=== PATIENT | female | born 1970 | race Caucasian/White ===

== ENCOUNTER 2023-10-14 10:11 | Outpatient (CLI) | payer OTHER, SELFPAY ==
--- NOTE | ~2023-10-14 | XR_ITS ---
XR cervical spine 4-5V Ordering provider: Farhat Espana MD History: . MILKA NECK PAIN RADIATES INTO SHOULDERS . Comparison: None. FINDINGS: VERTEBRAL BODIES: Normal height and alignment. No visible fracture or subluxation. The dens is intact . DISK SPACES: Well maintained. PARASPINOUS SOFT TISSUES: No prevertebral soft tissue swelling. IMPRESSION: No acute osseous abnormality cervical spine. Reviewed, dictated and finalized at location A.
--- NOTE | ~2023-10-14 | XR_ITS ---
3 VIEWS THORACIC SPINE Ordering provider: Farhat Espana MD History: . MILKA NECK PAIN, RADIATES INTO SHOULDERS. NKI . Comparison: None. FINDINGS: VERTEBRAL BODIES: Normal height and alignment. No visible fracture or subluxation. DISK SPACES: Normal. SOFT TISSUES: Normal. IMPRESSION: No acute osseous abnormality of the thoracic spine. Reviewed, dictated and finalized at location A.
== END 2023-10-14 10:12 | disposition home or self-care (01) ==
LOC: ANHIMG 10:14
PROVIDERS: PCP Internal Medicine; Visit Provider Internal Medicine
DX: M25.511 Pain in right shoulder (principal); M25.512 Pain in left shoulder; M54.2 Cervicalgia
CPT/HCPCS: 72050; 72072

== ENCOUNTER 2024-09-07 03:35 | Day surgery (SDC) | payer OTHER, SELFPAY ==
[2024-08-29 10:22] VITALS: BMI 23.4
--- OUTSIDE RECORDS SUMMARY | 2024-09-07 03:38 | XMS_ITS | Clinical Summary ---
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 Patient failed NSAIDs and physical therapy. Patient is reporting that the pain is worsening and affecting her ADLs. MRI completed. See report in chart. Refer to pain management for further evaluation and treatment options. 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 Patient has failed Kenalog. Rashes reoccurring. Was switched to Diprosone. Patient will try and eczema lotion in the morning and the steroid cream at night. Recommend patient switch to cotton underwear. Patient is also using a hypoallergenic soap/laundry detergent. If no improvement will consider a punch biopsy Migraine without aura and wi thout status migrainosus, not intractable 04/17/2020 Assessment & Plan (01/11/2023 11:55 AM CDT): Stable, titc-yhz-xemtkqk meds if needed Assessment & Plan (06/17/2020 3:28 PM CDT): Discussed tx options for migraines (inderal, elavil, topamax, bcp's increase estrogen to help with break thru bleeding, just tx the headaches monthly. ) Pt wants to stop he bcp's and using the imitrex as needed for migraines. Counseled pt on the correct way to take imitrex. Recommend giving it 1-2 months to see how patient does. If migraines become more intense and the Imitrex is not helping as much or she is getting more than 1 a month we will restart control. I would probably move her up to the Loestrin 1.08/25. Assessment & Plan (04/17/2020 2:13 PM GAS SPECIALIST): New diagnosis. Unsure of trigger at this time. Patient will start taking her control pills continuously for the next 1-2 months. Patient was given Imitrex to take with her next migraine. Patient will keep a migraine log. Patient will update us through my chart. Patient did not describe any red flag symptoms so we will hold on imaging at this time. If migraines or continuing will consider CT scan or MRI. Patient/parent was counseled on medication risk, side effects, and possible complications. Patient/parent was counseled on how to properly take the medication and to call with any adverse reactions. Patient/parent stated understanding. Health maintenance examination 11/22/2019 Overview (07/05/2024): PMH: 01/11/23 Last pap 01/11/23 Last mammogram:07/04/24 Last dexa: Last colonoscopy/cologuard: 05/3022 Last tdap:10/10/2009, 01/26/2020 Last Prevnar/pneumovax: Last Shingrix: info given Last eye exam: 2019 Assessment & Plan (01/11/2023 10:49 AM CDT): PMH: 01/11/23 Last pap:12/25/2016, 01/26/2020, 01/11/23 Last mammogram:10/28/2021 Last dexa: Last colonoscopy/cologuard: 05/3022 Last tdap:10/10/2009, 01/26/2020 Last Prevnar/pneumovax: Last Shingrix: info given Last eye exam: 2019 Assessment & Plan (01/26/2020 10:11 AM CDT): PMH: 01/26/2020 Last pap:12/25/2016, 01/26/2020 Last mammogram: Last dexa: Last colonoscopy/cologuard: info given Last tdap:10/10/2009, 01/26/2020 Last Prevnar/pneumovax: Last Shingrix: Last eye exam: 2019 BMI 23.0-23.9, adult 11/22/2019 Assessment & Plan (01/11/2023 11:55 AM CDT): BMI is okay. Normal range is 18-25 and overweight is 25-30. Continue to work on eating healthy and exercising at least 150 minutes per week. Assessment & Plan (01/26/2020 11:52 AM CDT): BMI is okay. Normal range is 18-25 and overweight is 25-30. Continue to work on eating healthy and exercising at least 150 minutes per week. Assessment & Plan (11/22/2019 12:03 PM CDT): BMI is okay. Normal range is 18-25 and overweight is 25-30. Continue to work on eating healthy and exercising at least 150 minutes per week. Nontoxic (diffuse) goiter 02/14/2019 Assessment & Plan (01/11/2023 11:55 AM CDT): Stable, followed by specialist. Due for labs. 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 Possible deep cyst, possible intense muscle spasm, possible unknown mass. Order ultrasound. Will cover for possible infection and give Keflex. May consider steroids and muscle relaxer pending ultrasound. May need refer to general surgeon Surveillance for contr ol, oral contraceptives 01/26/2020 01/11/2023 Assessment & Plan (01/26/2020 11:54 AM CDT): Stable on pill Encounters Date Type Department Care Team Description 07/05/2024 Results Follow-Up [facility] [address] [id number] Wanda Mishra PA Screening Mammogram Bilateral W Bryan 07/04/2024 1:27 PM CDT - 07/04/2024 11:59 PM CDT Hospital Encounter [facility] [address] [place] [address] Screening mammogram for breast cancer Discharge Disposition: Discharge to home or self care from Last 3 Months Immunizations Immunization Administration Dates Next Due Influenza, Quadrivalent, Spl it, Preservative Free, Intramuscular 01/11/2023,01/09/2021,01/26/2020 Influenza, Unspecified 12/28/2023(Deferr ed: Patient decision),12/30/2021(Deferred: Patient Refused),12/27/2021,12/27/2021(Deferre d: Patient Refused) ozuke (J&J) SARS-CoV-2 Vaccination 06/14/2020 Tdap 01/26/2020,10/10/2009 ZOSTER Recombinant 02/18/2024 Surgical History Surgery Date Site/Laterality Comments LAPAROSCOPY endometriosis noted and resected SECTION x2 Medical History Medical History Date Comments Hypothyroidism Nontoxic diffuse goiter Thyroiditis, autoimmune PONV (postoperative nausea and vomiting) Headache migraine Neck pain Family History Medical History Relation Name Comments No Known Problems Brother 1 No Known Problems Brother 2 Prostate cancer Father Prostate can cer - (Added by TW Conv) Thyroid disease Father's Sister Hyperlipidemia Maternal Grandfather No Known Problems Maternal Grandmother No Known Problems Mother Thyroid disease Other 1 Paternal Aunt Thyroid disease Other 2 Paternal Aunt Heart attack Paternal Grandfather No Known Problems Sister No Known Problems Son 1 No Known Problems Son 2 Relation Name Status Comments Brother 1 Alive Brother 2 Alive Father Alive Father's Sister Maternal Grandfather Maternal Grandmother Mother Alive Other 1 Paternal Aunt Other 2 Paternal Aunt Alive Paternal Grandfather Sister Alive Son 1 Son 2 Social History Tobacco Use Types Packs/Day Years Used Date Smoking Tobacco: Never Passive Smoke Exposure: Never Smokeless Tobacco: Never Tobacco Cessation:Counseling Given: Not Answered Alcohol Use Standard Drinks/Week Comments Yes 0 (1 standard drink = 0.6 oz pur e alcohol) 3-4 weekly AUDIT-C Answer Date Recorded Q1: How often do you have a drink containing alc ohol? 2-4 times a month 04/17/2024 Q2: How many drinks containi ng alcohol do you have on a typical day when you are drinking? 1 or 2 04/17/2024 Q3: How often do you have si x or more drinks on one occasion? Never 04/17/2024 PHQ-2 Answer Date Recorded PHQ-2 Total Score (If total score is 3 or more points, staff should administer the PHQ-9) 0 02/18/2024 Personal Safety Answer Date Recorded Have you ever been in or are you currently in a harmful physical or emotional relationship or is someone making you feel afraid or unsafe? Denies 04/15/2023 Comments No Sex and Gender Information Value Date Recorded Sex Assigned at Not on file Legal Sex Female 12:38 AM GAS SPECIALIST Gender Identity Female 03/03/2023 9:59 AM GAS SPECIALIST Sexual Orientation Not on file 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 file Not on file Not on file Obstetrics History Para Term AB IAB SAB Ectopic Multiple Livin g Live Births 4 4 2 2 2 2 Date Outcome GA Total Labor Labor/2nd/3rd Weight Sex Type Anes PTL Karlene A1 A5 Name Clin Term Term 2002 32w 0d M Living 2004 36w 0d M Living Last Filed Vital Signs Vital Sign Reading Time Taken Comments Blood Pressure 129/75 04/17/2024 9:01 AM GAS SPECIALIST Pulse 77 04/17/2024 9:01 AM GAS SPECIALIST Temperature 36.2 C (97.2 F) 04/17/2024 9:01 AM GAS SPECIALIST Respiratory Rate 16 04/17/2024 9:01 AM GAS SPECIALIST Oxygen Saturation 98% 04/17/2024 9:01 AM GAS SPECIALIST Inhaled Oxygen Concentration - - Weight 68.5 kg (151 lb) 04/17/2024 9:01 AM GAS SPECIALIST Height 170.2 cm (5' 7) 04/17/2024 9:01 AM GAS SPECIALIST Body Mass Index 23.65 04/17/2024 9:01 AM GAS SPECIALIST Plan of Treatment Health Maintenance Due Date Last Done Comments Hepatitis C Screening 1970 Hepatitis B Screening 1990 Covid-19 Vaccine ( season) 2023 02/04/2021, 06/14/2020 Regular Well Visit/Exam 18-64 01/12/2024 01/11/2023, 01/26/2020 Zoster Vaccine (2 of 2) 04/14/2024 02/18/2024 Influenza Vaccine (Season Ended) 2024 01/11/2023, 12/27/2021, 01/09/2021, Additional history exists Depression Screening 02/17/2025 02/18/2024, 02/05/2023, 01/25/2023, Additional history exists Colon Cancer Screening-DNA Stool 06/26/2025 06/26/2022 Breast Cancer Screening-Mammogram 07/04/2025 07/04/2024, 03/16/2023, 10/28/2021, Additional history exists Cervical Cancer Screening 01/12/2028 01/11/2023, 08/2016 DTaP/Tdap/Td Vaccine (3 - Td or Tdap) 01/25/2030 01/26/2020, 10/10/2009 Pneumococcal vaccine <65 Aged Out No longer eligible based on patient's age to complete this topic Goals Goal Patient Goal Type Associated Problems Recent Progress Patient-Stated? Author CCM Chronic Pain Care Plan Chronic Care Management Patric Friend, RN Note: Problem: Chronic Pain Goals: 1. Minimize further functional decline 2. Maximize quality of life 3. Control pain Strategies: - Activity/exercise program recommendation - Conservative stepwise pain medicine strategy with multi-disciplinary approach - Recommend healthy lifestyle strategies and compensatory methods as needed Procedures Procedure Name Priority Date/Time Associated Diagnosis Comments SCREENING MAMMOGRAM BILATERAL W BRYAN Schedule Routine, Read Routine (OP Routine) 07/04/2024 1:46 PM CDT Screening mammogram for breast cancer PAP AND HPV, REFLEX TO HPV GENOTYPES Routine 01/11/2023 11:10 AM CDT Pap smear, as part of routine gynecological examination Special screening examination for human papillomavirus (HPV) STOOL DNA COLOGUARD Routine 06/26/2022 10:45 AM CDT Screening for malignant neoplasm of colon from Last 3 Months or Most Recently Relevant to Health Maintenance Results * Screening Mammogram Bilateral W Bryan (07/04/2024 1:46 PM CDT) Anatomical Region Laterality Modality Breast Bilateral Mammography Impressions 07/04/2024 1:57 PM CDT BI-RADS ATLAS category (overall): 1 - Negative There is no mammographic evidence of malignancy. A 1 year screening mammogram is recommended. The patient has been or will be contacted. We recommend annual screening mammography for women at average risk of breast cancer beginning at age 40, based on guidelines of the [place] [employer] [employer] (ACR Practice Parameter for the Performance of Screening and Diagnostic Mammography) and [place] [employer]. For women with and elevated risk of breast cancer, please refer to the ACR Practice Parameter for specific screening recommendations. The patient will be entered into a reminder system with a target due date of 1 year for her next screening exam. Narrative 07/04/2024 1:57 PM CDT Screening Mammogram Bilateral W Bryan: 07/04/24 The study was acquired using full field digital technology and interpreted from soft copy. 2D digital mammographic views, as well as 3D digital tomosynthesis were performed in the CC and MLO projections. CLINICAL: Screening mammogram for breast cancer. No relevant medical history has been documented for this patient. No known family history of breast cancer. COMPARISONS: 03/16/2023 Screening Mammogram Bilateral W Bryan 10/28/2021 SCREENING MAMMOGRAM BILATERAL W BRYAN 05/19/2013 US Breast Limited 05/08/2013 US Breast Limited 05/05/2013 Diagnostic Mammogram Bilateral W Bryan BREAST TISSUE: The breasts are extremely dense, which lowers the sensitivity of mammography. FINDINGS: No suspicious masses, suspicious calcifications, or other suspicious findings are seen within either breast. There has been no suspicious change. Wanda THAO IMG MAMMO PROCEDURES Final Res ult * Pap and HPV, reflex to HPV Genotypes (01/11/2023 11:10 AM CDT) CLINICAL INFORMATION: [facility] Comment:None given LMP [facility] Comment:[place] Previous Pap [facility] Comment:NONE GIVEN Prev. Bx [facility] Comment:NONE GIVEN SOURCE: [facility] Comment:Cervix, Endocervix Pap, specimen adequacy [facility] Comment: Satisfactory for evaluation. Endocervical/transformation zone component present. HPV interp [facility] Comment: Cytology Results: Negative for intraepithelial lesion or malignancy. [employer] [facility] Comment: MMD, CT(ASCP) CT Screening Location: [place] [address] [facility] Comment: EXPLANATORY NOTE: The Pap is a screening test for cervical cancer. It is not a diagnostic test and is subject to false negative and false positive results. It is most reliable when a satisfactory sample, regularly obtained, is submitted with relevant clinical findings and history, and when the Pap result is evaluated along with historic and current clinical information. EFFECTIVE FEBRUARY 22, 2023, the version of ThinPrep you ordered, commonly known as manual ThinPrep, will be DISCONTINUED. An alternative form of ThinPrep, called ThinPrep Imaging, will continue to be available. For a copy of the client communication (TIS Client Letter) showing TIS test codes, see www.[email or web address]/Resources, and navigate to [email or web address]>Physician Materials>TIS Client Letter. You can also call for test code assistance. Human papillomavirus DNA, High Risk E6/E7 Not Detected NOT DETECTED [facility] Comment: Not Detected High Risk HPV types (16,18,31,33,35,39,45,51,52, 56,58,59,66,68) were not detected. Other HPV types which cause anogenital lesions may be present. The significance of the other types of HPV in malignant processes has not been established. Methodology: Real Time PCR Thin prep 01/11/2023 11:1 0 AM CDT 01/12/2023 12:16 PM CDT Wanda THAO LAB CYTOLOGY ORDERABLES Final Result [facility] [address] [place] [address] [facility] [address] [place] [address] * Stool DNA - Cologuard (06/26/2022 10:45 AM CDT) Stool DNA - Cologuard Negative Negative [facility] (CLIA #:[id number]) Comment: NEGATIVE TEST RESULT. A negative Cologuard result indicates a low likelihood that a colorectal cancer (CRC) or advanced adenoma (adenomatous polyps with more advanced pre-malignant features) is present. The chance that a person with a negative Cologuard test has a colorectal cancer is less than 1 in 1500 (negative predictive value >99.9%) or has an advanced adenoma is less than 5.3% (negative predictive value 94.7%). These data are based on a prospective cross-sectional study of 10,000 individuals at average risk for colorectal cancer who were screened with both Cologuard and colonoscopy. (Katelin Lambert et al, N Engl J Med 2014;370(14):5676-4148) The normal value (reference range) for this assay is negative. COLOGUARD RE-SCREENING RECOMMENDATION: Periodic colorectal cancer screening is an important part of preventive healthcare for asymptomatic individuals at average risk for colorectal cancer. Following a negative Cologuard result, the [place] [employer] and U.S. Multi-Society Task Force screening guidelines recommend a Cologuard re-screening interval of 3 years. References: [place] [employer] Guideline for Colorectal Cancer Screening: https://www.cancer.org/cancer/ystch-xgghkt-yqfahm/yunhsgjpe-oslsmuwkg-qokokzg/ac s-rec ommendations.html.; Manuel BLACKWELL, Sarah BOLAÑOS, Scott CorneliusK, Colorectal Cancer Screening: Recommendations for Physicians and Patients from the U.S. Multi-Society Task Force on Colorectal Cancer Screening , Am J Gastroenterology 2017; 112:1512-3313. TEST DESCRIPTION: Composite algorithmic analysis of stool DNA-biomarkers with hemoglobin immunoassay. Quantitative values of individual biomarkers are not reportable and are not associated with individual biomarker result reference ranges. Cologuard is intended for colorectal cancer screening of adults of either sex, 45 years or older, who are at average-risk for colorectal cancer (CRC). Cologuard has been approved for use by the U.S. FDA. The performance of Cologuard was established in a cross sectional study of average-risk adults aged 50-84. Cologuard performance in patients ages 45 to 49 years was estimated by sub-group analysis of near-age groups. Colonoscopies performed for a positive result may find as the most clinically significant lesion: colorectal cancer [4.0%], advanced adenoma (including sessile serrated polyps greater than or equal to 1cm diameter) [20%] or non- advanced adenoma [31%]; or no colorectal neoplasia [45%]. These estimates are derived from a prospective cross-sectional screening study of 10,000 individuals at average risk for colorectal cancer who were screened with both Cologuard and colonoscopy. (Katelin Lambert et al, N Engl J Med 2014;370(14):4436-1202.) Cologuard may produce a false negative or false positive result (no colorectal cancer or precancerous polyp present at colonoscopy follow up). A negative Cologuard test result does not guarantee the absence of CRC or advanced adenoma (pre-cancer). The current Cologuard screening interval is every 3 years. ([place] [employer] and U.S. Multi-Society Task Force). Cologuard performance data in a 10,000 patient pivotal study using colonoscopy as the reference method can be accessed at the following location: www.[employer]/results. Additional description of the Cologuard test process, warnings and precautions can be found at www.cologuard.[employer]. Stool 06/26/2022 10:4 5 AM CDT 09/25/2022 7:51 PM CDT us Lidia Bradley MD LAB BODY FLUIDS AND STOOLS ORDERABLES Final Result [facility] (CLIA #:[id number]) [address] [place] [address] from Last 3 Months or Most Recently Relevant to Health Maintenance Insurance [employer] [facility] H[facility]PPO Address: [facility] [address] [place] [address] [facility]O Address: [address] [address] [place] [address] [employer] [facility] [employer]/PPO Address: [address] [address] [place] [address] Care Teams Bit Welder Relationship Specialty Start Date End Date Farhat Espana MD [address] [facility] [address] [place] [address] PCP - General Internal Medicine 04/07/24 Dhara Barton DO [address] [facility] [address] [place] [address] Consulting Physician Endocrinology Diabetes & Metabolism 01/03/19
--- OUTSIDE RECORDS SUMMARY | 2024-09-07 03:38 | XMS_ITS | Referral Summary ---
Author Organization [facility] Address [address] [place] [address] Care Team Providers Care Assembly Loader Name Role Phone OraliaDhara rodriguez Kathryn DO Unavailable [phone] Farhat Espana MD Primary Care Provider [phone] Encounters Date Type Department Care Team Description 07/05/2024 Results Follow-Up [facility] Family [facility] [address] [address] Wanda Mishra PA Screening Mammogram Bilateral W Bryan 07/04/2024 1:27 PM CDT - 07/04/2024 11:59 PM CDT Hospital Encounter [facility] [address] [facility] [address] [place] [address] [address] [place], [place] [id number] Screening mammogram for breast cancer Discharge Disposition: Discharge to home or self care from Last 3 Months Allergies No known active allergies Medications levothyroxine [...] 02/18/2024 Assessment & Plan (02/18/2024 9:42 AM PERSONNEL CLERK): New issue. Patient failed NSAIDs and physical therapy. Patient is reporting that the pain is worsening and affecting her ADLs. MRI completed. See report in chart. Refer to pain management for further evaluation and treatment options. 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 Patient has failed Kenalog. Rashes reoccurring. [...] & Plan (01/11/2023 11:55 AM CDT): Stable, umgl-hjy-ckwtnei meds if needed Assessment & Plan (06/17/2020 [...] probably move her up to the Loestrin .08/25. Assessment & Plan (04/17/2020 2:13 PM PERSONNEL CLERK): New diagnosis. Unsure of trigger at this [...] 024 Assessment & Plan (02/05/2023 8:51 AM PERSONNEL CLERK): New issue. Possible deep cyst, possible intense muscle spasm, possible unknown mass. Order ultrasound. Will cover for possible infection and give Keflex. May consider steroids and muscle relaxer pending ultrasound. May need refer to general surgeon Surveillance for contr ol, oral contraceptives 01/26/2020 01/11/2023 Assessment & Plan (01/26/2020 11:54 AM CDT): Stable on pill Immunizations Immunization Administration Dates Next Due Influenza, Quadrivalent, Spl it, Preservative Free, Intramuscular 01/11/2023,01/09/2021,01/26/2020 Influenza, Unspecified 12/28/2023(Deferr ed: Patient decision),12/30/2021(Deferred: Patient Refused),12/27/2021,12/27/2021(Deferre d: Patient Refused) [employer] SARS-CoV-2 Vaccination 06/14/2020 Tdap 01/26/2020,10/10/2009 ZOSTER Recombinant 02/18/2024 Social History Tobacco Use Types Packs/Day Years [...] on file Legal Sex Female 12:38 AM PERSONNEL CLERK Gender Identity Female 03/03/2023 9:59 AM PERSONNEL CLERK Sexual Orientation Not on file 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 file Not on file Not on file Last Filed Vital Signs Vital Sign Reading Time Taken Comments Blood Pressure 129/75 04/17/2024 9:01 AM PERSONNEL CLERK Pulse 77 04/17/2024 9:01 AM PERSONNEL CLERK Temperature 36.2 C (97.2 F) 04/17/2024 9:01 AM PERSONNEL CLERK Respiratory Rate 16 04/17/2024 9:01 AM PERSONNEL CLERK Oxygen Saturation 98% 04/17/2024 9:01 AM PERSONNEL CLERK Inhaled Oxygen Concentration - - Weight 68.5 kg (151 lb) 04/17/2024 9:01 AM PERSONNEL CLERK Height 170.2 cm (5' 7) 04/17/2024 9:01 AM PERSONNEL CLERK Body Mass Index 23.65 04/17/2024 9:01 AM PERSONNEL CLERK Plan of Treatment Not on file Goals Goal Patient Goal Type Associated Problems Recent Progress Patient-Stated? Author CCM Chronic Pain Care Plan Chronic Care Management No Patric Amin RN Note: Problem: Chronic Pain Goals: 1. [...] age 42, based on guidelines of the [place] [employer] (ACR Practice Parameter for the Performance of Screening and Diagnostic Mammography) and [place] [employer]. For women [...] Genotypes (01/11/2023 11:10 AM CDT) CLINICAL INFORMATION: [facility] Comment:None given LMP [facility] Previous Pap [facility] [email or web address] [facility] Comment:NONE GIVEN Prev. Bx [facility] [email or web address] [facility] Comment:NONE GIVEN SOURCE: [facility] [email or web address] [facility] Comment:Cervix, Endocervix Pap, specimen adequacy [facility] Comment: Satisfactory for evaluation. Endocervical/transformation zone component present. HPV interp [facility] [email or web address] [facility] Comment: Cytology Results: Negative for intraepithelial lesion or malignancy. Manufacturing Teacher Que [facility] Comment: MMD, CT(ASCP) CT Screening Location: [place] [address] Comment [facility] [email or web address] [facility] Comment: EXPLANATORY NOTE: The Pap is [...] Client Letter) showing TIS test codes, see www.[employer]elt[employer]/Resources, and navigate to Well-Woman>Physician Materials>TIS Client Letter. You can also call for test code assistance. Human papillomavirus DNA, High Risk E6/E7 Not Detected NOT DETECTED [facility] Comment: Not Detected High Risk HPV types (16,18,31,33,35,39,45,51,52, 56,58,59,66,68) were not detected. Other HPV types which cause anogenital lesions may be present. The significance of the other types of HPV in malignant processes has not been established. Methodology: Real Time PCR Thin prep 01/11/2023 11:1 0 AM CDT 01/12/2023 12:16 PM CDT Wanda THAO LAB CYTOLOGY ORDERABLES Final Result [facility] [address] [place] [address] [facility] [address] [address] * Stool DNA - Cologuard (06/26/2022 10:45 AM CDT) Stool DNA - Cologuard Negative Negative [employer] (CLIA #:[id number]) Comment: NEGATIVE TEST RESULT. A negative Cologuard [...] screened with both Cologuard and colonoscopy. (Katelin Lezama al, N Engl J Med 2014;370(14):6065-2397) The normal value (reference range) for this assay is negative. COLOGUARD RE-SCREENING RECOMMENDATION: Periodic colorectal cancer screening is an important part of preventive healthcare for asymptomatic individuals at average risk for colorectal cancer. Following a negative Cologuard result, the [place] [employer] Society and U.S. Multi-Society Task Force screening guidelines recommend a Cologuard re-screening interval of 3 years. References: [place] [employer] Guideline for Colorectal Cancer Screening: https://www.cancer.org/cancer/jnkhj-hdcjvt-lrpeba/rzvuccmtu-bwddzctnj-rkevbmw/ac s-rec ommendations.html.; Manuel DK, Sarah BOLAÑOS, Scott CorneliusK, Colorectal Cancer Screening: Recommendations for Physicians and Patients from the U.S. Multi-Society Task Force on Colorectal Cancer Screening , Am J Gastroenterology 2017; 112:1382-9860. TEST DESCRIPTION: Composite algorithmic analysis of stool [...] screened with both Cologuard and colonoscopy. (Katelin Nash, N Engl J Med 2014;370(14):4949-6255.) Cologuard may produce a false negative or false positive result (no colorectal cancer or precancerous polyp present at colonoscopy follow up). A negative Cologuard test result does not guarantee the absence of CRC or advanced adenoma (pre-cancer). The current Cologuard screening interval is every 3 years. ([place] [employer] Society and U.S. Multi-Society Task Force). Cologuard performance data in a 10,000 patient pivotal study using colonoscopy as the reference method can be accessed at the following location: www.Stealth[employer]/results. Additional description of the Cologuard test process, warnings and precautions can be found at www.cologuard.com. Stool 06/26/2022 10:4 5 AM CDT 09/25/2022 7:51 PM CDT us Lidia Bradley MD LAB BODY FLUIDS AND STOOLS ORDERABLES Final Result Performing Organization Address City/State/[facility] Co de Phone Number [employer] (CLIA #:[id number]) [address] [place] [address] from Last 3 Months or Most Recently Relevant to Health Maintenance Insurance [facility] CHOICE PLUS [facility] Care Teams Assembly Loader Relationship Specialty Start Date End Date Farhat Espana MD [address] [place] [address] PCP - General Internal Medicine 04/07/24 Dhara Barton DO [address] [facility] [address] [facility] [address] [place] [address] Consulting Physician Endocrinology Diabetes & Metabolism 01/03/19
[2024-09-07] MEDS: LACTATED RINGERS 1,000 ML 150 ML IV CONT (12:01)
[2024-09-07 12:03] VITALS: BP 93/61; PULSE 91; RESP 12; TEMP 36.8; O2SAT 99
--- NOTE | 2024-09-07 12:05 | SUR.PREOP ---
Dr. Hicks notified that patient's blood pressure in preop was 93/61. Patient states this is what her blood pressure runs normally.
--- NOTE | 2024-09-07 13:20 | SUR.PREOP ---
Patient post menopausal over a year. Bedside test order canceled. Dr. Hicks notified.
--- NOTE | 2024-09-07 13:23 | WPDANESEPPF ---
Anes - Initial Pre Proc Eval Procedure: Operation Date: 09/07/24 13:00 Proposed Procedures p Screening Colonoscopy - Miguel A Casarez MD Date/Time: 09/07/24 13:23 Surgeon: Miguel A Casarez MD Pre Op Diagnosis: Encounter for screening for malignant neoplasm of Patient Data Age: 53 Gender: F Height: 1.7 m Weight: 65.3 kg Last Vital Signs Temp 98.2 F 09/07/24 12:03 Pulse 91 09/07/24 12:03 Resp 12 09/07/24 12:03 BP 93/61 L 09/07/24 12:03 Pulse Ox 99 09/07/24 12:03 O2 Del Method Room Air 09/07/24 12:03 Allergies Allergy/AdvReac Type Severity Reaction Status Date / Time Penicillins Allergy Intermediate Vomiting Verified 09/07/24 12:02 Home Medications ?Medication ?Instructions ?Recorded ?Confirmed ?Type levothyroxine 137 mcg tablet See Rx Instructions .Route .COMPLEX 11/19/23 09/07/24 History levothyroxine 112 mcg tablet 112 mcg PO DAILY 12/20/23 09/07/24 History Patient hx anesthesia problems: none Family hx anesthesia problems: none Results Review: All pre-operative results and documents have been reviewed as part of the pre-operative evaluation. 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 BMI 22.0-22.9, adult Encounter to establish care Hypothyroidism (acquired) History of myxoma Social History Social History Smoking status: Never smoker Second hand tobacco smoke exposure: No Alcohol intake: current Drinks per week: 1 Substance use: never Do You Feel Safe in your Home?: Yes Lack of Transportation: No Lack of Food: Never True Current Housing: I Have Housing Concerned About Future Housing: No Difficulty Paying Gas/Electric Bills: No Difficulty Paying for Meds: No Currently Unemployed: No Living arrangements: with family Gender identity (if verbalized by the patient): Female Spiritual care concerns: No Anes - Eval Final PreProcedure Day of Procedure 09/07/24 13:23 Patient weight: normal Heart: regular rate and rhythm Lungs: clear to auscultation Airway: Mallampati scale class II Neurological: alert and oriented Last oral intake: >/= 8 hours ASA classification: II Emergent: no Anesthetic plan: proceed Anesthesia type and monitoring: general GIVS and standard monitoring Results Review: All pre-operative results and documents have been reviewed as part of the pre-operative evaluation. Informed Consent: The patient's anesthetic plan and its attendant risks and benefits were discussed with the patient/family/POA. Questions were solicited and answers provided to the satisfaction of the patient/family/POA.
--- NOTE | 2024-09-07 13:40 | S_PTH ---
PATIENT: Sarah Shabazz LOC: [facility]#:[id number] AGE/SX: 53/F ROOM: RE09/07/[address]: Miguel A Casarez MD : 1970 BED: DIS: 09/07/2024 SPEC #: [id number] RECD: 09/08/24 08:25 STATUS: GEOVANI RERaji #: [id number] HECTOR: 09/07/24 13:[address]: Miguel A Casarez DEPT: [facility] Surgical RECD BY: Maureen Dominguez ENTERED: 09/08/24 08:25 SP TYPE: Surgical OTHR DR: Farhat Espana MD Tissues: A - Colon Polypectomy Procedures: Hematoxylin and Eosin Stain Gross and Microscopic Level 4
[2024-09-07 13:42] VITALS: BP 95/62; PULSE 72; RESP 26; O2SAT 100
--- NOTE | 2024-09-07 13:44 | PM.HPGS ---
History of Present Illness History of Present Illness Consent: Risks, benefits, and alternatives have been discussed and questions answered. Patient agrees to proceed with procedure. Chief complaint: Encounter for screening for malignant neoplasm of Narrative: Sarah Shabazz is a 53 year old female here for first colonoscopy Review of Systems Review of Systems: All systems reviewed & are unremarkable except as noted in HPI and below PMFSH Past Medical History Medical History (Updated 07/04/24 @ 09:33 by Myrna Ashley FLORIST[employer]S DECORATOR) Encounter for routine adult health examination without abnormal findings Dyslipidemia Cervicalgia Vitamin D deficiency BMI 23.0-23.9, adult Encounter for preventive health examination Left shoulder pain Colon cancer screening Breast cancer screening Carl's disease On middle or intermediate school principal drug therapy BMI 22.0-22.9, adult Encounter to establish care Hypothyroidism (acquired) History of myxoma Social History Social History Smoking status: Never smoker Second hand tobacco smoke exposure: No Alcohol intake: current Drinks per week: 1 Substance use: never Do You Feel Safe in your Home?: Yes Lack of Transportation: No Lack of Food: Never True Current Housing: I Have Housing Concerned About Future Housing: No Difficulty Paying Gas/Electric Bills: No Difficulty Paying for Meds: No Currently Unemployed: No Living arrangements: with family Gender identity (if verbalized by the patient): Female Spiritual care concerns: No Meds Home Medications and Allergies Home Medications ?Medication ?Instructions ?Recorded ?Confirmed ?Type levothyroxine 137 mcg tablet See Rx Instructions .Route .COMPLEX 11/19/23 09/07/24 History levothyroxine 112 mcg tablet 112 mcg PO DAILY 12/20/23 09/07/24 History Allergies Allergy/AdvReac Type Severity Reaction Status Date / Time Penicillins Allergy Intermediate Vomiting Verified 09/07/24 12:02 Vital Signs Vital Signs - 24 hr 09/07/24 12:03 Temperature 98.2 F Pulse Rate 91 Respiratory Rate 12 Blood Pressure 93/61 L Pulse Oximetry 99 Oxygen Delivery Room Air Exam Const: General: comfortable and no acute distress HENMT: Face/Nose/Sinus: Normal nares present Eyes: General: appearance normal, both eyes and all related structures Neck: Neck: no JVD Resp: Auscultation: clear to auscultation bilaterally Cardio: Rate: regular rate Rhythm: regular rhythm GI: Inspection: non-distended GI Palp: Yes Soft to palpation Skin: General skin exam: normal color Neuro: General: gait normal Speech: normal speech Extrem: General: normal to inspection Psych: Mental Status: mental status grossly normal Assessment and Plan Assessment and plan (1) Colon cancer screening: Code(s): Z12.11 - Encounter for screening for malignant neoplasm of colon Status: Acute Assessment and Plan: colonoscopy
[2024-09-07 13:52] VITALS: BP 97/58; PULSE 71; RESP 20; O2SAT 100
[2024-09-07 14:02] VITALS: BP 122/73; PULSE 66; RESP 19; O2SAT 100
== END 2024-09-07 14:14 | disposition home or self-care (01) ==
PROVIDERS: PCP Internal Medicine; Referring Provider Internal Medicine; Visit Provider Internal Medicine Gastroenterology
PROC: 0DJD8ZZ Inspection of Lower Intestinal Tract, Via Natural or Artificial Opening Endoscopic (ICD-10-PCS; CPT 45378; principal; 2024-09-07 13:00)
DX: Z12.11 Encounter for screening for malignant neoplasm of colon (principal); K63.5 Polyp of colon; K64.8 Other hemorrhoids; K57.30 Diverticulosis of large intestine without perforation or abscess without bleeding; E78.5 Hyperlipidemia, unspecified; E55.9 Vitamin D deficiency, unspecified; E06.3 Autoimmune thyroiditis; Z79.899 Other long term (current) drug therapy; Z86.018 Personal history of other benign neoplasm
CPT/HCPCS: 45385; 88305; J2003; J2704; J7120